=== PATIENT | female | born 1995 | race Two or more races ===

== ENCOUNTER 2019-06-25 19:10 | Emergency (ER) | payer OTHER ==
[~2019-06-25] VITALS: Ht 162.6 cm; Wt 70.5 kg
[2019-06-25] MEDS ORDERED: ACETAMINOPHEN TAB 650MG DOSE (2X325MG) PO ONE (19:15)
[2019-06-25 19:59] LABS: INFLUENZA A AMPLIFICATION NEGATIVE (NEGATIVE); INFLUENZA B AMPLIFICATION NEGATIVE (NEGATIVE)
[2019-06-25 22:06] VITALS: BP 130/75
== END 2019-06-25 22:18 | disposition home or self-care (01) ==
LOC: M ED 19:10
DX: J06.9 Acute upper respiratory infection, unspecified (principal)

== ENCOUNTER → 2019-06-28 | Outpatient (REF) | payer OTHER ==
[2019-06-28 22:26] LABS: CHLAMYDIA DNA AMPLIFICATION NEGATIVE (NEGATIVE); GC DNA AMPLIFICATION NEGATIVE (NEGATIVE)
== END ==
LOC: M SFHCLERA 14:14
PROVIDERS: ATTEND Nurse Practitioner Family
DX: N94.9 Unspecified condition associated with female genital organs and menstrual cycle (principal); N89.8 Other specified noninflammatory disorders of vagina

== ENCOUNTER 2020-09-15 13:19 | Emergency (ER) | payer OTHER ==
[~2020-09-15] VITALS: Ht 162.6 cm; Wt 77.6 kg
[2020-09-15 14:50] LABS: BASO % 0.7 % (0.0-1.0); EOS # 0.1 10^3/uL (0.0-0.5); EOS % 2.3 % (0.0-3.0); HEMATOCRIT 38.8 % (36.0-47.0); HEMOGLOBIN 12.4 g/dl (12.0-15.5); LYMPH # 2.2 10^3/uL (1.5-5.0); LYMPH % 37.9 % (24.0-44.0); MEAN CORPUSCULAR HEMOGLOBIN 27.2 pg (27.0-33.0); MEAN CORPUSCULAR VOLUME 85.1 fl (80.0-96.0); MONO # 0.5 10^3/uL (0.0-0.8); MONO % 8.8 % (0.0-5.0); NEUTROPHILS # 2.9 10^3/uL (1.5-8.5); NEUTROPHILS % 50.1 % (36.0-66.0); PLATELET COUNT, AUTOMATED 229 10^3/uL (150-450); RED BLOOD COUNT 4.56 10^6/uL (4.00-5.40); WHITE BLOOD COUNT 5.7 10^3/uL (4.0-10.0)
[2020-09-15] MEDS ORDERED: ACETAMINOPHEN 325 MG TAB PO ONE (15:00)
--- NOTE | 2020-09-15 15:21 | REP ---
INDICATION: RLQ pain on palpation. COMPARISON: None. TECHNIQUE: Transabdominal and transvaginal scanning performed. FINDINGS: Uterine dimensions are 7.3 x 3.7 x 4.7 cm. Endometrial echo is 12 mm in AP dimension and centrally placed. The bladder measures 7.4 x 3.8 x 9.2 cm. The right ovary has dimensions of 3.7 x 2.3 x 1.8 cm. It's Doppler flow is normal with a resistive index of 0.50. The left ovary dimensions are 3.8 x 2.4 x 3.2 cm. It's Doppler flow was normal with resistive index of 0.63. There is a complex cyst of the left ovary measuring 3.1 x 1.8 x 2.7 cm. Simple cyst separate from the right ovary in the right adnexa measures 1.4 x 1.2 x 1.4 cm. No free fluid is seen in the cul-de-sac. IMPRESSION: Complex cyst left ovary 3.1 cm. Simple paraovarian cyst on the right measures 1.4 cm. No torsion or free fluid. <Electronically signed by Rich Pfeiffer > 09/15/20 [id number]
[2020-09-15 16:18] VITALS: BP 125/69
[2020-09-15 16:18] LABS: CHLAMYDIA DNA AMPLIFICATION NEGATIVE (NEGATIVE); GC DNA AMPLIFICATION NEGATIVE (NEGATIVE)
== END 2020-09-15 16:36 | disposition home or self-care (01) ==
LOC: M ED 13:19
DX: K62.5 Hemorrhage of anus and rectum (principal); N83.202 Unspecified ovarian cyst, left side; R19.5 Other fecal abnormalities